=== PATIENT | female | born 2000 | race Two or more races ===

== ENCOUNTER 2025-04-14 04:18 | Emergency (ER) | payer SELFPAY ==
[~2025-04-14] VITALS: Ht 160 cm; Wt 90.7 kg
[2025-04-14] MEDS ORDERED: ONDANSETRON 4 MG/2 ML VIAL ONE ×2 (04:51→08:34)
[2025-04-14] MEDS ORDERED: HYDROMORPHONE 1 MG/1 ML DISP.SYRIN ONE ×2 (04:52→08:08)
[2025-04-14] MEDS: IV NORMAL SALINE 1000 ML BAG IV ONE (04:52)
[2025-04-14] MEDS: ONDANSETRON 4 MG/2 ML VIAL IV ONE ×2 (04:58→08:54)
[2025-04-14] MEDS: HYDROMORPHONE 1 MG/1 ML DISP.SYRIN IV ONE ×2 (04:58→08:09)
[2025-04-14 05:01] LABS: PLATELET COUNT (AUTO) 406 K/uL (179-408); RED BLOOD CELL COUNT(AUTO) 4.92 MIL/uL (3.63-4.92); RED CELL DISTRIBUTION WIDTH 21.3 % (12.3-17.7); WHITE BLOOD COUNT (AUTO) 10.5 K/uL (3.8-11.8)
[2025-04-14 05:05] LABS: NEUTROPHILS % (MANUAL) 0 % (42-75)
[2025-04-14 05:07] LABS: CREATININE 0.7 mg/dL (0.6-1.3); SODIUM SERUM 147 mmol/L (136-145); UREA NITROGEN, BLOOD 10 mg/dL (7-18)
[2025-04-14 05:13] LABS: ASPARTATE AMINOTRANSFERASE 12 U/L (15-37); TOTAL PROTEIN, SERUM 7.4 g/dL (6.4-8.2)
[2025-04-14 05:17] LABS: PREGNANCY TEST SERUM QUAN < 1 miul/L (0-6)
[2025-04-14] MEDS ORDERED: IV NORMAL SALINE 250 ML IV ONE (05:44)
[2025-04-14] MEDS ORDERED: SWABABLE VALVE TRANSFER SET EA MC ONE (05:45)
[2025-04-14] MEDS ORDERED: IOHEXOL 300MG/ML 100 ML INFUS..BTL ONE (05:45)
[2025-04-14] MEDS ORDERED: KETOROLAC TROMETHAMINE 15 MG INJ ONE (05:58)
[2025-04-14] MEDS: KETOROLAC TROMETHAMINE 15 MG INJ IVP ONE (05:59)
[2025-04-14 06:44] LABS: *BILIRUBIN,URIN NEGATIVE (NEGATIVE); *BLOOD, URINE 3+ (NEGATIVE); *CLARITY,URINE SLIGHTLY CLOUDY (CLEAR); *COLOR,URINE YELLOW (YELLOW); *KETONES,URINE NEGATIVE (NEGATIVE); *PROTEIN,URINE TRACE (NEGATIVE); *UROBILINOGEN,URINE 0.2 E.U./dl (NORMAL); LEUKOCYTE ESTERASE ,URINE NEGATIVE (NEGATIVE); NITRITE, URINE NEGATIVE (NEGATIVE); UGLUCOSE NEGATIVE (NEGATIVE)
[2025-04-14 06:53] LABS: SQUAMOUS EPITHELIAL CELL,UR FEW /HPF (NONE SEEN)
[2025-04-14] MEDS ORDERED: OXYC-133 PO (07:45)
[2025-04-14] MEDS ORDERED: ONDA4TAB5 PO (07:45)
[2025-04-14] MEDS ORDERED: KETO10TA2 PO (07:45)
[2025-04-14] MEDS ORDERED: FERR325T23 PO (07:59)
[2025-04-14 08:04] VITALS: BP 111/64; TEMP 98
[2025-04-14 09:08] VITALS: BP 121/66; O2SAT 96
== END 2025-04-14 09:26 | disposition home or self-care (01) ==
LOC: ER 04:28
DX: K80.20 Calculus of gallbladder without cholecystitis without obstruction (principal); R10.31 Right lower quadrant pain; R11.2 Nausea with vomiting, unspecified; F12.90 Cannabis use, unspecified, uncomplicated; R10.2 Pelvic and perineal pain
CPT/HCPCS: 99285; 74177; 96374; 76705; 96361; 96375; 80076; 80048; 81001; 83690; 85027; 85025; 86850; 86900; 86901; 84702; 36415; 96376; J1885; J2405 ×2; Q9967; J1171 ×2; J7040; 70030-TC; A4606; A4663